=== PATIENT | male | born 1985 ===

== ENCOUNTER 2019-02-20 09:11 | Day surgery (SDC) | payer BC ==
[2019-02-20 09:56] VITALS: BMI 23.2
[2019-02-20] MEDS ORDERED: Lactated Ringer's 1,000 ML IV ONE (11:15)
[2019-02-20] MEDS ORDERED: Lidocaine Hydrochloride 5 ML INJ ONE (11:21)
[2019-02-20] MEDS ORDERED: Propofol 10 mg/ml Inj (20 ML) ONE ×2 (11:21→11:27)
[2019-02-20 11:43] VITALS: O2SAT 100
[2019-02-20 12:22] VITALS: RESP 22
[2019-02-20 12:35] VITALS: BP 121/87; PULSE 69; TEMP 98
== END 2019-02-20 12:30 | disposition home or self-care (01) ==
LOC: C.ENDO 09:11
PROVIDERS: ATTEND Internal Medicine Gastroenterology
DX: K29.50 Unspecified chronic gastritis without bleeding (principal); K20.9 Esophagitis, unspecified; R10.13 Epigastric pain; K58.9 Irritable bowel syndrome, unspecified
CPT/HCPCS: 43239; 88305; 88313; 88342; J2001; J2704; J7120